=== PATIENT | female | born 1970 | race American Indian/Alaskan Native ===

== ENCOUNTER 2017-02-20 07:37 | Outpatient (CLI) | payer BC ==
--- NOTE | 2017-02-20 11:14 | Mammography Report ---
BILATERAL MAMMOGRAM with CAD: HISTORY: Cancer screening. Comparison study is dated February 14, 2016. FINDINGS: The breast tissue is heterogeneously dense, which could obscure detection of small masses (approximately 50%-75% glandular). No mass, distortion, suspicious calcification, or skin change is seen. IMPRESSION: Negative mammogram. There is no mammographic evidence of malignancy. RECOMMENDATION: Follow-up per ACS guidelines. BI-RADS CATEGORY: 1 = Negative ACR BI-RADS MAMMOGRAPHIC CODES: 0 = Needs additional imaging evaluation; 1 = Negative; 2 = Benign; 3 = Probably benign; 4 = Suspicious; 5 = Malignant; 6 = Known biopsy-proven malignancy COMMENT: 1. Dense breast tissue, i.e., adenosis, fibrocystic changes, etc., may obscure an underlying neoplasm. 2. Approximately 10% of cancers are not detected with mammography. 3. A negative mammography report should not delay biopsy if a clinically suspicious mass is present. COMMENT: Patient follow-up letters are generated in [employer].
== END 2017-02-20 07:38 | disposition home or self-care (01) ==
LOC: MAMMO 07:37
PROVIDERS: ATTEND Obstetrics & Gynecology
DX: Z12.31 Encounter for screening mammogram for malignant neoplasm of breast (principal); D64.9 Anemia, unspecified
CPT/HCPCS: 77067; G0202

== ENCOUNTER 2018-02-21 07:20 | Outpatient (CLI) | payer BC ==
--- NOTE | 2018-02-22 08:39 | Mammography Report ---
BILATERAL DIGITAL SCREENING MAMMOGRAM with CAD: 02/21/18 07:20:00 CLINICAL: Routine screening. COMPARISON:02/20/17 FINDINGS: The breasts are heterogeneously dense, which may obscure small masses. No mass, architectural distortion or suspicious calcifications. IMPRESSION: No mammographic evidence of malignancy. BI-RADS CATEGORY: 1 - - Negative RECOMMENDATION: Routine mammographic screening in one year. COMMENT: Patient follow-up letters are generated by our [employer] application.
== END 2018-02-21 07:21 | disposition home or self-care (01) ==
LOC: MAMMO 07:20
PROVIDERS: ATTEND Obstetrics & Gynecology
DX: Z12.31 Encounter for screening mammogram for malignant neoplasm of breast (principal)
CPT/HCPCS: 77067

== ENCOUNTER 2019-03-11 07:11 | Outpatient (CLI) | payer BC ==
--- NOTE | 2019-03-11 10:12 | Mammography Report ---
BILATERAL DIGITAL SCREENING MAMMOGRAM WITH CAD INDICATION: Screening. COMPARISONS: 02/21/2018 FINDINGS: Craniocaudal and mediolateral oblique views of both breasts were obtained using 2-D digital acquisition. In addition to standard review, the examination was analyzed for possible abnormalities using a computer-assisted detection device (iCAD). The breast tissue is heterogeneously dense, which may obscure small masses. A right asymmetry on the CC view requires additional imaging. No architectural distortion or suspicio us calcifications. The left breast is negative. IMPRESSION: Right asymmetry requiring additional imaging. Recommend recall for right LM, rolled CC and spot compr ession CC views and right breast ultrasound if needed. BI-RADS CATEGORY 0: INCOMPLETE - NEED ADDITIONAL IMAGING EVALUATION AND/OR PRIOR MAMMOGRAMS FOR COMP ARISON Information is entered into a reminder system for a target due date for the next mammogram. The resul ts and recommendations were sent to the patient by mail. Signer Name: Ac Cabrera MD Signed: 03/11/2019 10:08 AM Workstation Name: [id number]
== END 2019-03-11 07:12 | disposition home or self-care (01) ==
LOC: MAMMO 07:11
PROVIDERS: ATTEND Obstetrics & Gynecology
DX: Z12.31 Encounter for screening mammogram for malignant neoplasm of breast (principal)
CPT/HCPCS: 77067

== ENCOUNTER 2019-04-01 08:02 | Outpatient (CLI) | payer BC ==
--- NOTE | 2019-04-01 09:04 | Mammography Report ---
RIGHT DIGITAL DIAGNOSTIC MAMMOGRAM -- 04/01/2019 INDICATION: Recall for asymmetry. TECHNIQUE: Digital right mammographic imaging was performed. Spot compression views were obtained. L ateral and rolled CC views were obtained. COMPARISON: 03/11/2019 FINDINGS: Breast Density: The breasts are heterogeneously dense, which may obscure small masses. A marker was placed on a skin lesion at the inferior breast which correlates with the asymmetry on th e mammogram. It appears to have a blackhead consistent with a sebaceous cyst. IMPRESSION: Benign skin lesion and no suspicious finding. Follow up recommendation: Routine yearly BI-RADS Category 2: Benign. A "normal" or negative report should not discourage follow up or biopsy of a clinically significant f inding. A written summary of these findings will be mailed to the patient. The patient will be entered into a mammography reporting system which will generate a reminder letter for the patient's next appointmen t at the appropriate interval. According to the [employer], yearly mammograms are recommended starting at age 40 and continuing as long as a woman is in good health. Breast MRI is recommended for women with an michaelle roximately 20-25% or greater lifetime risk of breast cancer, including women with a strong family his tory of breast or ovarian cancer and women who have been treated for Hodgkin's disease. Signer Name: Ac Cabrera MD Signed: 04/01/2019 8:59 AM Workstation Name: [id number]
== END 2019-04-01 08:03 | disposition home or self-care (01) ==
LOC: MAMMO 08:02
PROVIDERS: ATTEND Obstetrics & Gynecology
DX: R92.8 Other abnormal and inconclusive findings on diagnostic imaging of breast (principal)

== ENCOUNTER 2020-04-22 08:18 | Outpatient (CLI) | payer BC ==
--- NOTE | 2020-04-22 10:38 | Mammography Report ---
DIGITAL SCREENING MAMMOGRAM WITH CAD, 04/22/2020 INDICATION: Routine screening mammography. SCREENING MAMMOGRAM TECHNIQUE: Digital bilateral 2D mammography was obtained in the craniocaudal and mediolateral obliq ue projections. This examination was interpreted with the benefit of Computer-Aided Detection analysi s. COMPARISON: 03/11/2019 and prior FINDINGS: Breast Density: The breasts are extremely dense, which lowers the sensitivity of mammography. There is no evidence of dominant mass, suspicious calcifications or architectural distortion in eithe r breast. IMPRESSION: No evidence of malignancy Follow up recommendation: Routine yearly BI-RADS Category 1: Negative. A "normal" or negative report should not discourage follow up or biopsy of a clinically significant f inding. A written summary of these findings will be mailed to the patient. The patient will be entered into a mammography reporting system which will generate a reminder letter for the patient's next appointmen t at the appropriate interval. The [employer] recommends yearly mammograms starting at age 40 and continuing as l jacqueline as a woman is in good health. Breast MRI is recommended for women with an approximate 20-25% or greater lifetime risk of breast cancer, including women with a strong family history of breast or ova laz cancer or who have been treated for Hodgkin's disease. Signer Name: Sony Wakefield MD Signed: 04/22/2020 10:33 AM Workstation Name: [id number]
== END 2020-04-22 08:19 | disposition home or self-care (01) ==
LOC: MAMMO 08:18
PROVIDERS: ATTEND Obstetrics & Gynecology
DX: Z12.31 Encounter for screening mammogram for malignant neoplasm of breast (principal)
CPT/HCPCS: 77067

== ENCOUNTER 2021-05-09 07:42 | Outpatient (CLI) | payer BC ==
--- NOTE | 2021-05-09 09:33 | Mammography Report ---
DIGITAL SCREENING MAMMOGRAM WITH CAD, 05/09/2021 CLINICAL INFORMATION / INDICATION: Routine screening mammography. SCREENING MAMMOGRAM TECHNIQUE: Digital bilateral 2D mammography was obtained in the craniocaudal and mediolateral obliqu e projections. This examination was interpreted with the benefit of Computer-Aided Detection analysis . COMPARISON: 04/22/2020, 03/11/2019 FINDINGS: Breast Density: The breasts are extremely dense, which lowers the sensitivity of mammography. No dominant mass, suspicious calcifications, or architectural distortion in either breast. IMPRESSION: No mammographic evidence of malignancy. Follow up recommendation: Routine yearly BI-RADS Category 1: Negative. A "normal" or negative report should not discourage follow up or biopsy of a clinically significant f inding. A written summary of these findings will be mailed to the patient. The patient will be entered into a mammography reporting system which will generate a reminder letter for the patient's next appointmen t at the appropriate interval. The [employer] recommends yearly mammograms starting at age 40 and continuing as l jacqueline as a woman is in good health. Breast MRI is recommended for women with an approximate 20-25% or greater lifetime risk of breast cancer, including women with a strong family history of breast or ova laz cancer or who have been treated for Hodgkin's disease. Signer Name: Bud Leung MD Signed: 05/09/2021 9:29 AM Workstation Name: [id number]
== END 2021-05-09 07:43 | disposition home or self-care (01) ==
LOC: MAMMO 07:42
PROVIDERS: ATTEND Obstetrics & Gynecology
DX: Z12.31 Encounter for screening mammogram for malignant neoplasm of breast (principal)
CPT/HCPCS: 77067